=== PATIENT | female | born 1965 | race Caucasian/White ===

== ENCOUNTER 2022-02-12 00:24 | Day surgery (SDC) | payer OTHER, SELFPAY ==
[2022-02-02 14:21] VITALS: BMI 23.4
--- NOTE | 2022-02-12 08:32 | P.PNAN_ITS ---
Anes - Initial Pre Proc Eval Procedure: Operation Date: 02/12/22 11:15 Proposed Procedures p Esophagogastroduodenoscopy & Screening Colonoscopy - Brent Duval MD Date/Time: 02/12/22 08:32 Surgeon: Brent Duval MD Pre Op Diagnosis: hx of colon polyps, heartburn and indigestion Patient Data Age: 56 Gender: F Height: 1.63 m Weight: 62 kg Allergies Allergy/AdvReac Type Severity Reaction Status Date / Time No Known Allergies Allergy Verified 02/12/22 10:06 Home Medications Medication Instructions Recorded Confirmed Type fluticasone propionate 50 2 spray NASAL DAILY #3 device 10/17/21 02/02/22 Rx mcg/actuation nasal spray,suspension ascorbic acid (vitamin C) 500 mg PO DAILY 02/02/22 02/02/22 History [Chewable Vitamin C] calcium carbonate-vitamin D3 1 tablet PO BID 02/02/22 02/02/22 History [Calcium+D] cetirizine [Zyrtec] 10 mg PO DAILY 02/02/22 02/02/22 History magnesium 200 mg PO BID 02/02/22 02/02/22 History multivitamin [Daily Multivitamin] 1 tablet PO DAILY 02/02/22 02/02/22 History omega-3 fatty acids [Fish Oil] 500 mg PO DAILY 02/02/22 02/02/22 History psyllium husk [Metamucil] 0.4 g PO DAILY 02/02/22 02/02/22 History pyridoxine (vitamin B6) 100 mg PO DAILY 02/02/22 02/02/22 History zinc 50 mg PO DAILY 02/02/22 02/02/22 History Patient hx anesthesia problems: none Family hx anesthesia problems: none Results Review: All pre-operative results and documents have been reviewed as part of the pre-operative evaluation. [facility] Past Medical History Medical History (Updated 02/12/22 @ 08:33 by Hesham Middleton MD) Acute bronchitis due to other specified organisms Acute non-recurrent sinusitis Breast CA Chronic GERD H/O malignant neoplasm of breast Influenza Lower respiratory tract infection Surgical History Surgical History (Updated 12/28/21 @ 14:14 by Itzel De Luna CMA) H/O basal cell carcinoma excision H/O bilateral mastectomy H/O LEEP H/O left inguinal hernia repair History of colon resection Family History Family History (Updated 12/28/21 @ 14:18 by Itzel De Luna CMA) Mother Carcinoma of colon Father Leukemia MDS (myelodysplastic syndrome) Social History Social History (Updated 12/28/21 @ 14:14 by Itzel De Luna [facility]) Smoking status: Never smoker Second hand tobacco smoke exposure: No Alcohol intake: never Substance use: never Substance use type: does not use Living arrangements: with family Spiritual care concerns: No Anes - Eval Final PreProcedure Day of Procedure 02/12/22 08:32 Patient weight: normal Heart: regular rate and rhythm Lungs: clear to auscultation and normal air movement Airway: Mallampati scale class II Neurological: alert and oriented Last oral intake: >/= 8 hours ASA classification: III Emergent: no Anesthetic plan: proceed Anesthesia type and monitoring: general GIVS Results Review: All pre-operative results and documents have been reviewed as part of the pre-operative evaluation. Informed Consent: The patient's anesthetic plan and its attendant risks and benefits were discussed with the patient/family/POA. Questions were solicited and answers provided to the satisfaction of the patient/family/POA.
[2022-02-12 10:13] VITALS: BP 116/64; PULSE 80; RESP 20; TEMP 37.6; O2SAT 99
--- NOTE | 2022-02-12 10:29 | WPDGICN ---
Assessment and Plan Assessment and plan (1) History of colon polyps: Code(s): Z86.010 - Personal history of colonic polyps Status: Acute Assessment and Plan: Patient has a history of large colon polyp regarding partial colon resection. Plan is for surveillance colonoscopy now and every 3-4 years in the future. (2) Family history of colon cancer in mother: Code(s): Z80.0 - Family history of malignant neoplasm of digestive organs Status: Acute Assessment and Plan: Patient's family history is significant mother had colon cancer for this reason additionally screening colonoscopies at 3-5 year intervals are advised. (3) History of laryngeal spasm: Code(s): Z87.09 - Personal history of other diseases of the respiratory system Status: Acute Assessment and Plan: Patient had recent laryngeal spasm ENT suggested this may be from acid reflux. Patient denies heartburn and has not been on acid suppression with no recent symptoms. EGD is requested to evaluate more thoroughly. Further recommendations will be given after endoscopy. (4) Breast CA: Code(s): C50.919 - Malignant neoplasm of unspecified site of unspecified female breast Status: Acute Assessment and Plan: Patient currently followed by Oncology. GI Consult Note Consult date/time: 02/12/22 10:29 HPI: Karen Phillips is a 56 year old female Presents for colonoscopy and EGD. Patient has history of large colon polyp requiring partial colectomy. Family history is significant her mother had colon cancer. Patient presents today for screening colonoscopy. Last colonoscopy was 3 years ago. Additionally patient notices recent laryngeal spasm. She was seen by ENT and was suspected to have acid reflux. She denies any heartburn. She has not been placed on any acid reducing medication. She denies any dysphagia. She has had no recent spasms. Her weight has remained stable she has had no bleeding. An EGD is requested to evaluate this more thoroughly. Review of Systems Review of Systems: All systems reviewed & are unremarkable except as noted in HPI and below PMFSH Past Medical History Medical History (Updated 02/12/22 @ 10:32 by Brent Duval MD) Acute bronchitis due to other specified organisms Acute non-recurrent sinusitis Breast CA Chronic GERD H/O malignant neoplasm of breast Influenza Lower respiratory tract infection Surgical History Surgical History (Updated 12/28/21 @ 14:14 by Itzel De Luna CMA) H/O basal cell carcinoma excision H/O bilateral mastectomy H/O LEEP H/O left inguinal hernia repair History of colon resection Family History Family History (Updated 12/28/21 @ 14:18 by Itzel De Luna CMA) Mother Carcinoma of colon Father Leukemia MDS (myelodysplastic syndrome) Social History Social History (Updated 12/28/21 @ 14:14 by Itzel De Luna CMA) Smoking status: Never smoker Second hand tobacco smoke exposure: No Alcohol intake: never Substance use: never Substance use type: does not use Living arrangements: with family Spiritual care concerns: No Meds Home Medications and Allergies Home Medications Medication Instructions Recorded Confirmed Type fluticasone propionate 50 2 spray NASAL DAILY #3 device 10/17/21 02/02/22 Rx mcg/actuation nasal spray,suspension ascorbic acid (vitamin C) 500 mg PO DAILY 02/02/22 02/02/22 History [Chewable Vitamin C] calcium carbonate-vitamin D3 1 tablet PO BID 02/02/22 02/02/22 History [Calcium+D] cetirizine [Zyrtec] 10 mg PO DAILY 02/02/22 02/02/22 History magnesium 200 mg PO BID 02/02/22 02/02/22 History multivitamin [Daily Multivitamin] 1 tablet PO DAILY 02/02/22 02/02/22 History omega-3 fatty acids [Fish Oil] 500 mg PO DAILY 02/02/22 02/02/22 History psyllium husk [Metamucil] 0.4 g PO DAILY 02/02/22 02/02/22 History pyridoxine (vitamin B6) 100 mg PO DAILY 02/02/22
[2022-02-12] MEDS: LACTATED RINGERS 1,000 ML 150 ML IV CONT (10:30)
--- NOTE | 2022-02-12 10:50 | SUR.OPER ---
EGD: [id number] COLON: [id number]
[2022-02-12 11:05] VITALS: BP 95/56; PULSE 81; RESP 18; O2SAT 97
[2022-02-12 11:15] VITALS: BP 101/61; PULSE 60; RESP 20; O2SAT 98
[2022-02-12 11:25] VITALS: BP 104/63; PULSE 66; RESP 18; O2SAT 100
== END 2022-02-12 11:38 | disposition home or self-care (01) ==
PROVIDERS: PCP Family Medicine; Visit Provider Internal Medicine Gastroenterology
PROC: 0DJ08ZZ Inspection of Upper Intestinal Tract, Via Natural or Artificial Opening Endoscopic (ICD-10-PCS; CPT 43235; principal; 2022-02-12 11:15)
DX: Z12.11 Encounter for screening for malignant neoplasm of colon (principal); D12.2 Benign neoplasm of ascending colon; K64.8 Other hemorrhoids; Z80.0 Family history of malignant neoplasm of digestive organs; C50.919 Malignant neoplasm of unspecified site of unspecified female breast; Z87.09 Personal history of other diseases of the respiratory system
CPT/HCPCS: 45385; 43235; 88305; J2001; J2704; J7120

== ENCOUNTER 2025-05-03 00:02 | Day surgery (SDC) | payer BC, SELFPAY ==
[2025-04-18 10:27] VITALS: BMI 22.6
--- OUTSIDE RECORDS SUMMARY | 2025-05-03 00:05 | XMS_ITS | Clinical Summary ---
Author Organization [facility] [place] Address [address] [place] [address] Phone Care Team Providers Care Certified Drug Counselor Name Role Phone Karina Law MD Primary Care Provider [phone] Allergies No known active allergies Medications FERROUS FUMARATE/VIT BCOMP&C (SUPER B COMPLEX ORAL) Take by mouth. Active Calcium-Choleca lciferol, D3, 600 mg-5 mcg (200 unit) Capsule Take by mouth. Activ e fluticasone propionate (FLONASE) 50 mcg/spray [place], Suspension nasal inhaler Administer 2 Sprays in each nostril daily. Active multivitamin (DAILY-LEANDRO) tablet Take 1 Tablet by mouth daily. Active magnesium oxide 250 mg magnesium Tablet Take by mouth 2 times daily. Active ascorbic acid (VITAMIN C) 500 mg Tablet, Chewable 1 Active zinc 50 mg Tablet 1 Active fexofenadine (LILIBETH) 60 mg tablet Take 60 mg by mouth 2 times daily. Active Active Problems Patient Care Coordination No te Formatting of this note migh t be different from the original. Primary Care: Karina Law MD Referring Provider: Karina Law MD [address] [place] [address] Other: Dr Jacqueline Ladd MD Problem Noted Date Diagnosed Date Personal history of malignant neoplasm of breast 10/02/2017 S/P bilateral mastectomy 10/13/2015 Invasive ductal carcinoma of breast, female 06/2015 Invasive ductal carcinoma of breast 02/13/2015 Overview (10/13/2015): [facility] Right Axillary mass 02/07/2015 Encounters Date Type Department Care Team Description 05/01/2025 External Device Data ST[facility] ABSTRACTION Provider, Abstract 04/16/2025 External Device Data [facility] ABSTRACTION Provider, Abstract 04/05/2025 Results Follow-Up [facility] Oncology and Hematology Jessica Emerson [address] [facility] [address] [place] [address] Xin Lowe MD MAMMO BREAST US RIGHT LTD 04/04/2025 External Device Data [facility] ABSTRACTION Provider, Abstract 04/03/2025 10:51 AM CDT - 04/03/2025 11:59 PM CDT Hospital Encounter [facility] Jessica [place] [address] [place] [id number] Xin Lowe MD Discharge Disposition: Home or Self Care 04/03/2025 External Device Data ST[facility] ABSTRACTION Provider, Abstract 04/02/2025 External Device Data [facility] ABSTRACTION Provider, Abstract 04/01/2025 3:30 PM CDT Office Visit [facility] Oncology and Hematology Jessica Emerson [address] [place] [id number] Xin Lowe MD Infiltrating ductal carcinoma of right female breast (CMS/HCC) (Primary Dx); Screening due 02/26/2025 External Device Data ST[facility] ABSTRACTION Provider, Abstract 02/11/2025 9:14 AM CDT - 02/11/2025 11:59 PM CDT Hospital Encounter [facility] Bone Density [address] [place] [address] Eileen Tineo MD Discharge Disposition: Home or Self Care from Last 3 Months Immunizations Immunization Administration Dates Next Due INFLUENZA VACCINE QUADRIVALENT 6 MOS UP PF IM INFLUENZA VACCINE TRIVALENT SPLIT VIRUS, (6 MOS UP), 0.5ML (PF), IM 08/20/2024 Family History Medical History Relation Name Comments Cancer Father leukemia, myelo dysplastic Colon Cancer Mother Relation Name Status Comments Father Mother Social History Tobacco Use Types Packs/Day Years Used Date Smoking Tobacco: Never Smokeless Tobacco: Never Tobacco Cessation:Counseling Given: Not Answered Alcohol Use Standard Drinks/Week Comments Yes 1 (1 standard drink = 0.6 oz pur e alcohol) socially Feeling Safe Answer Date Recorded Do you worry about feeling s afe and happy with the people in your life? No 04/01/2025 Comments No Sex and Gender Information Value Date Recorded Sex Assigned at Not on file Legal Sex Female 9:59 AM CDT Gender Identity Not on file Sexual Orientation Not on file Last Filed Vital Signs Vital Sign Reading Time Taken Comments Blood Pressure 102/66 04/01/2025 3:26 PM CDT Pulse 71 04/01/2025 3:26 PM CDT Temperature 36.6 C (97.9 F) 04/01/2025 3:26 PM CDT Respiratory Rate 16 07/17/2024 11:28 AM CDT Oxygen Saturation 98% 04/01/2025 3:26 PM CDT Inhaled Oxygen Concentration - - Weight 59.4 kg (131 lb) 04/01/2025 3:26 PM CDT Height 162.6 cm (5' 4) 04/01/2025 3:26 PM CDT Body Mass Index 22.49 04/01/2025 3:26 PM CDT Plan of Treatment Health Maintenance Due Date Last Done Comments DTAP/TDAP/TD VACCINES (1 - Tdap) 1986 HEPATITIS B VACCINES (1 of 3 - 19+ 3-dose series) 1986 HPV/Cotest (21-29) 1988 CERVICAL CANCER SCREENING 1997 HPV/Cotest (30-65) 1997 PAP SMEAR 1997 FIT-DNA Q 3 years 2012 FIT/FOBT Q 1 year 2012 Flex Sig/CT Colonography Q 5 years 2012 ZOSTER VACCINE (1 of 2) 2017 COLORECTAL SCREENING 02/09/2029 02/09/2019, 02/05/20 Colorectal Cancer Screening 02/09/2029 INFLUENZA VACCINE Completed 08/20/2024, 08/03/2022 Medical Devices Implanted Type Area Installer Helper Device Identifier Shelf Expiration Date Model / Serial / Lot Breast Implant Implanted:Qty: 1 on 12/30/2015 by Jose Cruz Ramos MD at [facility] [place] Right: Breast ALLERGAN- [employer]ICAL 07/13/2020 [place] 19768 / [id number] / [id number] Breast Implant Implanted:Qty: 1 on 12/30/2015 by Jose Cruz Ramos MD at [facility] Left: Breast [employer]ICAL 07/26/2020 [place] 19768 / [id number] / [id number] Perfix Ligt Plug Implanted:Qty: 1 on 12/15/2018 by Eri Saldivar MD at [facility] Left: Abdomen 05/11/2023 [id number] / / [id number] Description:Davol Explanted Type Area Installer Helper Device Identifier Shelf Expiration Date Model / Serial / Lot Natural Gas Inspector Mmmry Tab 400ml [id number]-13-[id number] - [id number] Implanted:Qty : 1 on 07/03/2015 by Jose Cruz Ramos MD at [facility] Explanted:Qty : 1 on 12/30/2015 by Jose Cruz Ramos MD at [facility] Right: Breast ALLERGAN- MEDICAL 08/19/2018 [id number]-13-T / [id number] / Natural Gas Inspector Mmmry Tab 400ml [id number]-13-[id number] - [id number] Implanted:Qty : 1 on 07/03/2015 by Jose Cruz Ramos MD at [facility] Explanted:Qty : 1 on 12/30/2015 by Jose Cruz Ramos MD at [facility] Mammary Left: Chest ALLERGAN- MEDICAL 08/19/2018 133MV-13-T / [id number] / Powerport Clear Arsenio Implanted:Qty : 1 on 03/03/2015 by Leisa Cunningham MD at [facility] Explanted:Qty : 1 on 07/03/2015 by Yue Mejia MD at [facility] Other Left: Chest 02/11/2016 [id number] / / [id number] Description:Internal Jugular placement Procedures Procedure Name Priority Date/Time Associated Diagnosis Comments MAMMO BREAST US RIGHT LTD Stat 04/03/2025 11:17 AM CDT Infiltrating ductal carcinoma of right female breast (CMS/HCC) XR DEXA BONE DENSITY AXIAL 1 OR MORE SITES Routine 02/11/2025 9:46 AM CDT Osteopenia of multiple sites COLONOSCOPY REPORT Routine 02/09/2019 from Last 3 Months or Most Recently Relevant to Health Maintenance Results * MAMMO BREAST US RIGHT LTD (04/03/2025 11:17 AM CDT) Anatomical Region Laterality Modality Right Ultrasound 04/03/2025 11:1 7 AM CDT Impressions 04/03/2025 11:22 AM CDT IMPRESSION: No suspicious findings identified on sonogram to account for the reported palpable lump of concern. Continued monthly breast self-examination and clinical follow-up is recommended. Consider repeat imaging in case of perceived growth. Any additional management of this time should be based on clinical assessment. OVERALL FINAL ASSESSMENT: BI-RADS CATEGORY 1 - Negative. DICTATION LOCATION: Tessa Emerson Narrative 04/03/2025 11:22 AM CDT EXAMINATION: MAMMO BREAST US RIGHT LTD DATE: 04/03/2025 11:17 AM HISTORY: 60-year-old woman with personal history of breast cancer status post bilateral mastectomy and implant reconstruction. New palpable lump. COMPARISON: None available. TECHNIQUE: Targeted sonographic examination of the right breast/axilla is performed with real-time grayscale imaging with Doppler. FINDINGS: Targeted sonographic examination of the area of palpable concern is performed. This is located at the level of the right axilla. No suspicious mass or lymphadenopathy seen. Xin Lowe MD MAMMO ORDERABLES Final Result * XR DEXA BONE DENSITY AXIAL 1 OR MORE SITES (02/11/2025 9:46 AM CDT) Anatomical Region Laterality Modality Digital Radiogra phy 02/11/2025 9:46 AM CDT Impressions 02/11/2025 9:50 AM CDT IMPRESSION: Osteopenia. Lumbar Spine: T-score: -1.9 Left Femoral Neck: T-score: -0.8 Left Total Femur: T-score: -0.7 Right Femoral Neck: T-score: -1.1 Right Total Femur: T-score: -0.6 FRAX FRACTURE RISK ASSESSMENT: 10-Year probability of fracture Major osteoporotic fracture: 6.3 % Defined as fracture of the spine, hip or shoulder. Hip fracture: 0.4 % This is a summary page. Please refer to the complete detailed report found in: Imaging Section of the [facility] EMR. Definitions: Normal: T-score above -1.0 Osteopenia T-score less than -1.0 and above -2.5 Osteoporosis: T-score <= -2.5 Note: Clinical Osteoporosis may be based on other factors besides DXA calculated BMD. OTher factors include and are not limited to fragility fractures, subclinical compression fractures,osteopenia and elevated FRAX Scores. A major osteoporotic fracture is defined as a fracture of the spine, forearm, hip or shoulder. Dictated by Dr. Vu Jaeger MD DICTATION LOCATION: 02/11/2025 9:50 AM CDT EXAMINATION: BONE DENSITY STUDY (DXA) DATE: 02/11/2025 9:46 AM HISTORY: 59 years Female. Postmenopausal. Osteopenia. PROCEDURE: Planar images of the lumbar spine and hip(s). Verient DEXA scanner for bone mineral density determination (BMD). Prior bone density: 12/03/2022 FINDINGS: Lumbar Spine (L1-L4): T-score: -1.9 Prior T-score: -1.5 Left Femoral Neck: T-score: -0.8 Prior T-score: -0.7 Left Total Femur: T-score: -0.7 Right Femoral Neck: T-score: -1.1 Prior T-score: -1.0 Right Total Femur: T-score: -0.6 TECHNICAL ISSUES: None. Procedure Note Vu Jaeger MD - 02/11/2025 EXAMINATION: BONE DENSITY STUDY (DXA) DATE: 02/11/2025 9:46 AM HISTORY: 59 years Female. Postmenopausal. Osteopenia. PROCEDURE: Planar images of the lumbar spine and hip(s). Verient DEXA scanner for bone mineral density determination (BMD). Prior bone density: 12/03/2022 FINDINGS: Lumbar Spine (L1-L4): T-score: -1.9 Prior T-score: -1.5 Left Femoral Neck: T-score: -0.8 Prior T-score: -0.7 Left Total Femur: T-score: -0.7 Right Femoral Neck: T-score: -1.1 Prior T-score: -1.0 Right Total Femur: T-score: -0.6 TECHNICAL ISSUES: None. IMPRESSION: Osteopenia. Lumbar Spine: T-score: -1.9 Left Femoral Neck: T-score: -0.8 Left Total Femur: T-score: -0.7 Right Femoral Neck: T-score: -1.1 Right Total Femur: T-score: -0.6 FRAX FRACTURE RISK ASSESSMENT: 10-Year probability of fracture Major osteoporotic fracture: 6.3 % Defined as fracture of the spine, hip or shoulder. Hip fracture: 0.4 % This is a summary page. Please refer to the complete detailed report found in: Imaging Section of the [facility] EMR. Definitions: Normal: T-score above -1.0 Osteopenia T-score less than -1.0 and above -2.5 Osteoporosis: T-score <= -2.5 Note: Clinical Osteoporosis may be based on other factors besides DXA calculated BMD. OTher factors include and are not limited to fragility fractures, subclinical compression fractures,osteopenia and elevated FRAX Scores. A major osteoporotic fracture is defined as a fracture of the spine, forearm, hip or shoulder. Dictated by Dr. Vu Jaeger MD DICTATION LOCATION: 1 Eileen Tineo MD DIAGNOSTIC IMAGING ORDERABLES Final Result * COLONOSCOPY REPORT (02/09/2019) us Karina Lwa MD GI PROCEDURE ORDERABLES Final Re sult [facility] Last 3 Months or Most Recently Relevant to Health Maintenance Insurance BCBS BLUE ACCESS/TRUE BLUE PPO RX [employer] DATA Medicare Part B RX GENERIC COMMERCIAL Commercial Advance Directives For more information, please contact: [phone] * Full Code (Latest Code Status on File) Date Activated Date Inactivated Comments 12/15/2018 6:56 AM 12/15/2018 10:42 AM * Full Code Date Activated Date Inactivated Comments 12/15/2018 6:49 AM 12/15/2018 6:56 AM * Full Code Date Activated Date Inactivated Comments 12/15/2018 6:09 AM 12/15/2018 6:49 AM * Full Code Date Activated Date Inactivated Comments 12/30/2015 6:17 AM 12/30/2015 1:52 PM * Full Code Date Activated Date Inactivated Comments 07/03/2015 12:26 PM 07/04/2015 11:14 AM Care Teams Certified Drug Counselor Relationship Specialty Start Date End Date Karina Law MD [address] [place] [address] PCP - General Family Practice 02/07/15
--- OUTSIDE RECORDS SUMMARY | 2025-05-03 00:05 | XMS_ITS ---
Author Organization [facility] [place] Address [address] [place] [address] Phone Care Team Providers Care Roving Changer Name Role Phone Karina Law MD Primary Care Provider [phone] Active Problems Patient Care Coordination No te Formatting of this note migh t be different from the original. Primary Care: Karina Law MD Referring Provider: Karina Law MD [address] [place] [address] Other: Dr Jacqueline Ladd MD Problem Noted Date Diagnosed Date Personal history of malignant neoplasm of breast 10/02/2017 S/P bilateral mastectomy 10/13/2015 Invasive ductal carcinoma of breast, female 06/2015 Invasive ductal carcinoma of breast 02/13/2015 [facility]13/2015[facility] Right Axillary mass 02/07/2015 Current Treatment and Therapy Plans No current plan information found. Past Treatment and Therapy Plans ONCOLOGY THERAPY PLAN Plan Name Start Date Discontinue Date Treatment Medications Discontinue Reason Plan Provider PORT FLUSH 03/04/2015 09/11/2020 No medications scheduled. Therapy Complete Eileen Tineo MD ONCOLOGY TREATMENT Plan Name Start Date Discontinue Date Treatment Medications Discontinue Reason Plan Provider Cycles OP ONC BREAST_PA CLITAXEL_ DOSE DENSE EVERY 14 DAYS 5 06/18/2015 PACLitaxel (TAXOL) in sodium chloride 0.9% (PVC free) 500 mL infusion Therapy Complete Eileen Tineo MD 4 of 4 cycles started OP ONC BREAST AC_DOSE DENSE_EVE RY 14 DAYS 5 04/29/2015 cycloPHOSphamide (CYTOXAN) IVPBDOXOrubicin (ADRIAMYCIN) Therapy Complete Eileen Tineo MD 4 of 4 cycles started Lifetime Dose Tracking * Chemical Lifetime Dose Automatic Entry Manual Entr y doxorubicin 241.556 mg/m2 (404 mg) 241.556 mg/m2 (404 mg) 0 mg/m2 (0 mg) Effective Dose 7.3 mSv 7.3 mSv 0 mSv Total DLP 275 DLP 275 DLP 0 DLP CTDIvol Max 8.2 mGy 8.2 mGy 0 mGy CTDIvol Min 8.2 mGy 8.2 mGy 0 mGy
[2025-05-03 06:49] VITALS: BP 99/54; PULSE 70; RESP 17; TEMP 36.8; O2SAT 100; BMI 21.9
[2025-05-03] MEDS: LACTATED RINGERS 1,000 ML 150 ML IV CONT (06:58)
--- NOTE | 2025-05-03 07:42 | P.PNAN_ITS ---
Anes - Initial Pre Proc Eval Procedure: Operation Date: 05/03/25 08:00 Proposed Procedures p Screening Colonoscopy - Herbert Prasad MD Date/Time: 05/03/25 07:42 Surgeon: Herbert Prasad MD Pre Op Diagnosis: Screening Patient Data Age: 60 Gender: F Height: 1.63 m Weight: 58 kg Last Vital Signs Temp 98.3 F 05/03/25 06:49 Pulse 70 05/03/25 06:49 Resp 17 05/03/25 06:49 BP 99/54 L 05/03/25 06:49 Pulse Ox 100 05/03/25 06:49 O2 Del Method Room Air 05/03/25 06:49 Allergies Allergy/AdvReac Type Severity Reaction Status Date / Time No Known Allergies Allergy Verified 05/03/25 06:46 Home Medications ?Medication ?Instructions ?Recorded ?Confirmed ?Type ascorbic acid (vitamin C) 500 mg 500 mg PO DAILY 02/02/22 05/03/25 History chewable tablet calcium carbonate-vitamin D3 400 1 tablet PO BID 02/02/22 05/03/25 History mg -133.3 unit tablet magnesium 200 mg tablet 200 mg PO BID 02/02/22 05/03/25 History multivitamin 1 tablet PO DAILY 02/02/22 05/03/25 History omega-3 fatty acids 500 mg capsule 500 mg PO DAILY 02/02/22 05/03/25 History psyllium husk 0.4 gram capsule 0.4 g PO DAILY 02/02/22 05/03/25 History (Metamucil) pyridoxine (vitamin B6) 100 mg 100 mg PO DAILY 02/02/22 05/03/25 History tablet zinc 50 mg tablet 50 mg PO DAILY 02/02/22 05/03/25 History fluticasone propionate 50 2 spray intranasal DAILY #3 device 10/01/24 05/03/25 Rx mcg/actuation nasal spray,suspension estradiol 0.01% (0.1 mg/gram) vaginal 04/18/25 History vaginal cream Patient hx anesthesia problems: none Family hx anesthesia problems: none Results Review: All pre-operative results and documents have been reviewed as part of the pre- operative evaluation. [facility] Past Medical History Medical History Acute bronchitis due to other specified organisms Acute non-recurrent sinusitis Breast CA Chronic GERD H/O malignant neoplasm of breast Influenza Lower respiratory tract infection Surgical History Surgical History H/O basal cell carcinoma excision H/O bilateral mastectomy H/O LEEP H/O left inguinal hernia repair History of colon resection Family History Family History Mother Carcinoma of colon Father Leukemia MDS (myelodysplastic syndrome) Social History Social History Smoking status: Never smoker Second hand tobacco smoke exposure: No Alcohol intake: never Substance use: never Substance use type: does not use Lack of Transportation: No Lack of Food: Never True Current Housing: I Have Housing Concerned About Future Housing: No Difficulty Paying Gas/Electric Bills: No Difficulty Paying for Meds: No Currently Unemployed: No Education: High School Diploma/GED Difficulty w/ Childcare or Family Care: No Living arrangements: with family Occupation/Education: retired Spiritual care concerns: No Anes - Eval Final PreProcedure Day of Procedure 05/03/25 07:42 Patient weight: normal Heart: regular rate and rhythm Lungs: clear to auscultation Airway: Mallampati scale class II Neurological: alert and oriented Last oral intake: >/= 8 hours ASA classification: III Emergent: no Anesthetic plan: proceed Anesthesia type and monitoring: general GIVS and standard monitoring Results Review: All pre-operative results and documents have been reviewed as part of the pre- operative evaluation. Informed Consent: The patient's anesthetic plan and its attendant risks and benefits were discussed with the patient/family/POA. Questions were solicited and answers provided to the satisfaction of the patient/family/POA.
--- NOTE | 2025-05-03 07:43 | PM.HPGS ---
History of Present Illness History of Present Illness Consent: Risks, benefits, and alternatives have been discussed and questions answered. Patient agrees to proceed with procedure. Chief complaint: screening Narrative: Karen Phillips is a 60 year old female here for colonoscopy, last one 2021. She has history of large colon polyp regarding partial colon resection, mother also had colon cancer. Review of Systems Review of Systems: All systems reviewed & are unremarkable except as noted in HPI and below PMFSH Past Medical History Medical History Acute bronchitis due to other specified organisms Acute non-recurrent sinusitis Breast CA Chronic GERD H/O malignant neoplasm of breast Influenza Lower respiratory tract infection Surgical History Surgical History H/O basal cell carcinoma excision H/O bilateral mastectomy H/O LEEP H/O left inguinal hernia repair History of colon resection Family History Family History Mother Carcinoma of colon Father Leukemia MDS (myelodysplastic syndrome) Social History Social History Smoking status: Never smoker Second hand tobacco smoke exposure: No Alcohol intake: never Substance use: never Substance use type: does not use Lack of Transportation: No Lack of Food: Never True Current Housing: I Have Housing Concerned About Future Housing: No Difficulty Paying Gas/Electric Bills: No Difficulty Paying for Meds: No Currently Unemployed: No Education: High School Diploma/GED Difficulty w/ Childcare or Family Care: No Living arrangements: with family Occupation/Education: retired Spiritual care concerns: No Meds Home Medications and Allergies Home Medications ?Medication ?Instructions ?Recorded ?Confirmed ?Type ascorbic acid (vitamin C) 500 mg 500 mg PO DAILY 02/02/22 05/03/25 History chewable tablet calcium carbonate-vitamin D3 400 1 tablet PO BID 02/02/22 05/03/25 History mg -133.3 unit tablet magnesium 200 mg tablet 200 mg PO BID 02/02/22 05/03/25 History multivitamin 1 tablet PO DAILY 02/02/22 05/03/25 History omega-3 fatty acids 500 mg capsule 500 mg PO DAILY 02/02/22 05/03/25 History psyllium husk 0.4 gram capsule 0.4 g PO DAILY 02/02/22 05/03/25 History (Metamucil) pyridoxine (vitamin B6) 100 mg 100 mg PO DAILY 02/02/22 05/03/25 History tablet zinc 50 mg tablet 50 mg PO DAILY 02/02/22 05/03/25 History fluticasone propionate 50 2 spray intranasal DAILY #3 device 10/01/24 05/03/25 Rx mcg/actuation nasal spray,suspension estradiol 0.01% (0.1 mg/gram) vaginal 04/18/25 History vaginal cream Allergies Allergy/AdvReac Type Severity Reaction Status Date / Time No Known Allergies Allergy Verified 05/03/25 06:46 Vital Signs Vital Signs - 24 hr 05/03/25 06:49 Temperature 98.3 F Pulse Rate 70 Respiratory Rate 17 Blood Pressure 99/54 L Pulse Oximetry 100 Oxygen Delivery Room Air Exam Const: General: comfortable and no acute distress HENMT: Face/Nose/Sinus: Normal nares present Eyes: General: appearance normal, both eyes and all related structures Neck: Neck: no JVD Resp: Auscultation: clear to auscultation bilaterally Cardio: Rate: regular rate Rhythm: regular rhythm GI: Inspection: non-distended GI Palp: Yes Soft to palpation Skin: General skin exam: normal color Neuro: General: gait normal Speech: normal speech Extrem: General: normal to inspection Psych: Mental Status: mental status grossly normal Assessment and Plan Assessment and plan (1) History of colon polyps: Code(s): Z86.010 - Personal history of colon polyps Status: Acute Assessment and Plan: colonoscopy (2) Family history of colon cancer in mother: Code(s): Z80.0 - Family history of malignant neoplasm of digestive organs Status: Acute
[2025-05-03 08:00] VITALS: BP 92/51; PULSE 61; RESP 15; O2SAT 100
[2025-05-03 08:10] VITALS: BP 99/65; PULSE 57; RESP 17; O2SAT 100
[2025-05-03 08:20] VITALS: BP 108/67; PULSE 56; RESP 17; O2SAT 100
== END 2025-05-03 08:29 | disposition home or self-care (01) ==
PROVIDERS: PCP Family Medicine; Referring Provider Internal Medicine Gastroenterology; Visit Provider Internal Medicine Gastroenterology
PROC: 0DJD8ZZ Inspection of Lower Intestinal Tract, Via Natural or Artificial Opening Endoscopic (ICD-10-PCS; CPT 45378; principal; 2025-05-03 08:00)
DX: Z12.11 Encounter for screening for malignant neoplasm of colon (principal); Z80.0 Family history of malignant neoplasm of digestive organs; Z86.0100 Personal history of colon polyps, unspecified; Z98.0 Intestinal bypass and anastomosis status; Z90.49 Acquired absence of other specified parts of digestive tract
CPT/HCPCS: 45378; J2003; J2704; J7120